=== PATIENT | female | born 1965 | race Caucasian/White ===

== ENCOUNTER → 2019-12-11 | Outpatient (CLI) | payer OTHER ==
[~2019-12-11] MED LIST: ASCO100T4 PO; BIOT1CAP3 PO; MIRT15TA3 PO; MULT-245 PO; OMEP40CA45 PO; PUMP300C PO; VITA50004 PO; ZINC50TA39 PO
[2019-12-15 10:14] VITALS: BP 151/93
== END ==
LOC: LAB 10:30
PROVIDERS: ATTEND Nurse Anesthetist, Certified Registered
DX: Z01.812 Encounter for preprocedural laboratory examination (principal); Z20.828 Contact with and (suspected) exposure to other viral communicable diseases; Z12.11 Encounter for screening for malignant neoplasm of colon
CPT/HCPCS: C9803; U0003

== ENCOUNTER → 2019-12-15 | Day surgery (SDC) | payer OTHER ==
[~2019-12-15] MED LIST changes: +IPRATRPIUM/ALBUTEROL 0.5/2.5MG 3 ML NEBU. NEB PRN; +IV RINGERS SOLUTION,LACTATED 1,000 ML IV SCH; +MIDAZOLAM HCL PF 2 MG/2 ML VIAL. IV ONE; +ONDANSETRON PF 4 MG/2 ML VIAL. IV PRN; +PROPOFOL 10,000 MCG/ML (20ML) VIAL IV ONE
[2019-12-15 10:14] VITALS: BP 151/93
--- NOTE | 2019-12-16 18:13 | PATHOLOGY ---
[facility] Accession Number: [id number] . 01 Material submitted: . PART A: colon - DESCENDING COLON POLYP. Modifiers: descending PART B: colon - SIGMOID POLYP X2. Modifiers: sigmoid PART C: rectum - RECTAL POLYP . 02 Diagnosis: A. Colon biopsy, descending colon polyp: - Tubular adenoma. . B. Colon biopsies, sigmoid colon polyps x2: - Tubular adenoma (1). - Segments of colonic mucosa consistent with hyperplastic polyp/prominent mucosal fold. . C. Colorectal biopsy, rectal polyp: - Hyperplastic polyp showing focal cystic glandular dilatation and mild chronic inflammation. (JPM:rolan; 12/16/2019) . . QMS 12/16/2019 0920 Local . 02 Comment: There is no high grade dysplasia or evidence of malignancy. (JPM:rolan; 12/16/2019) . 02 Electronically signed: . Lencho Mitchell MD, Pathologist NPI- [id number] . 01 Gross description: . A. The specimen is received in formalin, labeled "Royce, Melania, descending polyp" and consists of a fragment of pink-marcano tissue measuring 0.3 x 0.3 cm which is entirely submitted in A1. . B. The specimen is received in formalin, labeled "Royce, Melania, sigmoid polyp x2" and consists of multiple fragments of marcano tissue measuring 0.8 x 0.3 x 0.2 cm aggregate which are entirely submitted in B1. . C. The specimen is received in formalin, labeled "Royce, Melania, rectal polyp" and consists of a polypoid segment of marcano tissue measuring 0.6 x 0.5 x 0.3 cm. The margin is inked black. It is bisected and entirely submitted in A1. (SDY; 12/15/2019) SYU/SYU 12/15/2019 1820 Local . 02 Pathologist provided ICD-10: D12.4, D12.5, K62.1, K62.89 . 02 CPT . 228988, 040284, [id number] Specimen Comment: A courtesy copy of this report has been sent to [phone], [phone] Specimen Comment: [id number] Specimen Comment: Report sent to / DR GONCALVES Performed at: 01 [facility] [address] [place] [id number] MD Gerber George MD Phone: [phone] Performed at: 02 [facility] [address] [place], [place] [id number] MD Lencho Mitchell MD Phone: [phone]
== END ==
LOC: SURG 07:59
PROVIDERS: ATTEND Internal Medicine Gastroenterology
DX: Z12.11 Encounter for screening for malignant neoplasm of colon (principal); D12.4 Benign neoplasm of descending colon; D12.5 Benign neoplasm of sigmoid colon; K57.30 Diverticulosis of large intestine without perforation or abscess without bleeding; K62.1 Rectal polyp; Z80.0 Family history of malignant neoplasm of digestive organs; Z88.8 Allergy status to other drugs, medicaments and biological substances; Z79.899 Other long term (current) drug therapy
CPT/HCPCS: 45380; 45385; 88305; J2704; J7120